=== PATIENT | female | born 1960 | race Caucasian/White ===

== ENCOUNTER → 2018-03-28 | Outpatient (CLI) | payer BC ==
--- NOTE | 2018-03-28 09:43 | DIAGNOSTIC IMAGING REPORT ---
L FOOT MIN 3 VIEWS HISTORY: 58 years-old Female LEFT KNEE PAIN acute left foot pain COMPARISON: None available TECHNIQUE: 3 views of the left foot FINDINGS: Bones appear mildly demineralized. Mild osteoarthritis about the first MTP joint. Mild soft tissue swelling about the fifth MTP joint. Bipartite type II accessory navicular. No acute fracture or dislocation. Large enthesophytes about the plantar and Achilles calcaneus. Mild to moderate marginal spurring about the dorsal midfoot. Os trigonum noted. IMPRESSION: 1. Mild soft tissue swelling without acute fracture or dislocation. 2. Mildly demineralized appearance of the bones with degenerative changes as above. The above report was generated using voice recognition software. It may contain grammatical, syntax or spelling errors. Electronically signed by: Bony Arndt M.D. 03/28/2018 9:41 AM Dictated Date/Time: 03/28/2018 9:40 AM
== END | disposition home or self-care (01) ==
LOC: C.RDSM 13:38
PROVIDERS: ATTEND Physician Assistant
DX: M25.561 Pain in right knee (principal)